=== PATIENT | male | born 1980 | race Caucasian/White ===

== ENCOUNTER 2017-11-12 07:26 | Day surgery (SDC) | payer OTHER, SELFPAY ==
--- NOTE | 2017-11-12 | LES_PTH ---
PATIENT: MC GOMEZ LOC: [facility] – [place] U#:[id number] AGE/SX: 37/M ROOM: RE11/12/[address]: Dr. Nicho Lane MD : 1980 BED: DIS: 11/12/2017 SPEC #: [id number] RECD: 11/12/17 10:41 STATUS: JASPER SERNA #: [id number] ERMELINDA: 11/12/17 00:[address]: Nicho Lane DEPT: SURGICAL PATHOLOGY RECD BY: Sherine Presley ENTERED: 11/12/17 11:40 SP TYPE: Lesion OTHR DR: Dr. Nicho Nunes MD Tissues: Uvula palatina Procedures: Surgery Specimen Level III HEADER OPERATION: Excision, lesion, Uvular PRE-OP DIAGNOSIS: Neoplasm of uncertain behavior of pharynx TISSUE SUBMITTED: Lesion of uvula MICROSCOPIC DIAGNOSIS Lesion of uvula, biopsy: Squamous papilloma. SJ:luigi 11/13/17 MICROSCOPIC DESCRIPTION Slides are reviewed. GROSS DESCRIPTION Received in fixative is one container labeled with the patient's name and designated lesion of uvula. The specimen consists of two irregular fragments of magana tissue that in aggregate measure 0.6 x 0.5 x .1 cm. The specimen is totally submitted in one cassette. / AM:luigi 11/12/17 TC:1 CPT: 39337
[2017-11-12 07:46] VITALS: BP 119/87; PULSE 80; RESP 16; TEMP 36.4; O2SAT 99; BMI 31.3
--- NOTE | 2017-11-12 08:33 | DCINST_ITS ---
You will use the following diet at home:: No restrictions Discharge Activity: Return to Normal Activity Call your doctor if your incision/area has: Sudden Increased Bleeding Allergies/Adverse Reactions: Allergies No Known Allergies Allergy (Verified 11/05/17 14:25) Primary Care Physician: Luis Alberto Nunes MD [Primary Care Provider] - Test Results: Test results from this visit will be discussed in further detail at your follow- up appointment, if applicable. Please Follow Up With: Luis Alberto Lane MD When: 3 weeks
--- NOTE | 2017-11-12 08:35 | PCM.OPRPT ---
Problem List (1) Mass of soft palate Status: Chronic Report of Operation Date of Procedure: 11/12/17 Pre-Operative Diagnosis: uvular mass Post-Operative Diagnosis: uvular mass Surgery/Procedure Performed:: excision uvular mass Type of Anesthesia:: General Description of Procedure: on the day of the procedure, after appropriate informed consent was obtained, the patient was brought to the operating room and placed in supine position on the operating table. he was placed under general endotracheal anesthesia by the anesthesiologist. the endotracheal tube was secured, the eyes were taped. the table was rotated 90 degrees toward the surgeon. a head drape was placed. a dano milagros mouthgag was inserted and suspended from the marcelino stand. the papular lesion just right of midline was grasped with a debakey forceps and excised with the bovie. hemostasis was achieved. the table was rotated 90 degrees toward the anesthesiologist and the patient was extubated uneventfully. the patient was transferred to the PACU in stable condition.
[2017-11-12 09:34] VITALS: BP 119/87; BP 135/96; PULSE 86; RESP 16; TEMP 36.4; O2SAT 98
[2017-11-12 09:45] VITALS: BP 119/87; BP 127/92; PULSE 76; RESP 16; O2SAT 96
[2017-11-12 10:00] VITALS: BP 119/87; BP 123/81; PULSE 74; RESP 16; TEMP 36.2; O2SAT 97
[2017-11-12 10:19] VITALS: BP 119/87
== END 2017-11-12 10:43 | disposition home or self-care (01) ==
LOC: SDC 07:27 → AC 07:28
PROVIDERS: Family Provider Family Medicine; PCP Family Medicine; Visit Provider Otolaryngology
PROC: (CPT 42104; principal; 2017-11-12 08:45)
DX: D10.39 Benign neoplasm of other parts of mouth (principal); F12.90 Cannabis use, unspecified, uncomplicated; Z87.891 Personal history of nicotine dependence
CPT/HCPCS: 42104; 88304; J7120; J2405

== ENCOUNTER → 2018-01-27 11:28 | Outpatient (CLI) | payer OTHER, SELFPAY ==
[2018-01-27 13:55] LABS: Absolute Lymphocyte Count 1.86 X10^3/ul (0.83-4.51); Absolute Neutrophil Count 2.8 X10^3/uL (2.0-7.7); Basophil# 0.01 X10^3/uL; Basophil% 0.2 % (0-1); Eosinophil# 0.09 X10^3/uL; Eosinophils% 1.6 % (0-5); Hematocrit 46.5 % (40-54); Hemoglobin 15.8 g/dl (13.0-16.5); Lymphocyte # 1.86 X10^3/ul (4.0); Lymphocyte % 33.9 % (19-41); Mean Corpuscular Hgb 30.6 pg (27.0-32.0); Mean Corpuscular Volume 90.1 fL (80-94); Monocyte# 0.67 X10^3/uL; Monocyte% 12.2 % (0-10); Neutrophil # 2.83 X10^3/uL (2.7-7.7); Neutrophil % 51.7 % (47-70); Platelet Count 234 K/mm3 (150-450); RBC Distribution Width CV 12.3 % (11.6-14.6); RBC Distribution Width SD 40.3 fl (35.1-43.9); Red Blood Count 5.16 M/mm3 (4.6-6.2); White Blood Count 5.5 K/mm3 (4.4-11.0)
[2018-01-27 13:56] LABS: POSITIVE COUNT NO; POSITIVE DIFFERENTIAL NO; POSITIVE MORPHOLOGY NO
[2018-01-27 14:15] LABS: BUN 16 mg/dL (7-18); Creatinine, Serum 0.85 mg/dL (0.70-1.30); Glucose 90 mg/dL (74-106)
[2018-01-27 14:16] LABS: AST(SGOT) 16 U/L (15-37); Alanine Aminotransfer ALT/SGPT 40 U/L (16-61); Albumin, Serum 3.8 g/dL (3.2-5.0); Alkaline Phosphatase 76 U/L (45-117); Anion Gap 8 (5-15); BUN/Creat Ratio 18.7 RATIO (10-20); Calcium,Total 8.6 mg/dL (8.5-10.1); Chloride 106 mmol/L (98-107); EST Glomerular Filtration Rate 106 mL/min (>60); Est Glom Filt Rate - Afr Amer 129 mL/min (>60); Globulin 3.8 g/dL (2.2-4.2); Potassium 4.1 mmol/L (3.5-5.1); Protein, Total 7.6 g/dL (6.4-8.2); Sodium Level 140 mmol/L (136-145); Thyroid Stim Hormone (TSH) 0.95 uIU/mL (0.358-3.74)
[2018-01-27 14:18] LABS: Vitamin D,25 Hydroxy 14.8 ng/mL (29.95-100.01)
== END ==
PROVIDERS: Family Provider Family Medicine; PCP Family Medicine; Visit Provider Family Medicine
DX: R53.83 Other fatigue (principal)
CPT/HCPCS: 36415; 80053; 82306; 84403; 84443; 85025

== ENCOUNTER → 2019-02-03 10:03 | Outpatient (CLI) | payer OTHER, SELFPAY ==
[2019-02-03 12:40] LABS: Erythrocyte Sedimentation Rate 3 mm/hr (0-15)
[2019-02-03 12:55] LABS: Vitamin D,25 Hydroxy 53.2 ng/mL (29.95-100.01)
[2019-02-03 13:08] LABS: BUN 14 mg/dL (7-18); Glucose 94 mg/dL (74-106)
[2019-02-03 13:09] LABS: AST(SGOT) 19 U/L (15-37); Alanine Aminotransfer ALT/SGPT 35 U/L (16-61); Albumin, Serum 3.9 g/dL (3.2-5.0); Alkaline Phosphatase 79 U/L (45-117); Anion Gap 5 (5-15); BUN/Creat Ratio 15.2 RATIO (10-20); Calcium,Total 8.9 mg/dL (8.5-10.1); Chloride 106 mmol/L (98-107); Creatinine, Serum 0.92 mg/dL (0.70-1.30); EST Glomerular Filtration Rate 97 mL/min (>60); Est Glom Filt Rate - Afr Amer 117 mL/min (>60); Protein, Total 7.9 g/dL (6.4-8.2); Sodium Level 139 mmol/L (136-145)
[2019-02-06 12:07] LABS: Testosterone, Free 13.43 ng/dL (5.00-21.00)
[2019-02-06 13:11] LABS: Testosterone, % Free 3.73 % (1.50-4.20); Testosterone, Total 360 ng/dL (264-916)
== END ==
PROVIDERS: Family Provider Family Medicine; PCP Family Medicine; Referring Provider Family Medicine; Visit Provider Family Medicine
DX: K58.9 Irritable bowel syndrome, unspecified (principal); K90.0 Celiac disease; R53.83 Other fatigue; R79.89 Other specified abnormal findings of blood chemistry
CPT/HCPCS: 36415; 80053; 82306; 84402; 84403; 85652

== ENCOUNTER → 2020-04-12 14:45 | Outpatient (CLI) | payer OTHER, SELFPAY ==
[2020-04-12 18:16] LABS: Absolute Lymphocyte Count 2.48 X10^3/uL (0.83-4.51); Absolute Neutrophil Count 4.5 X10^3/uL (2.0-7.7); Basophil# 0.03 X10^3/uL; Basophil% 0.4 % (0-1); Eosinophil# 0.06 X10^3/uL; Eosinophils% 0.8 % (0-5); Hematocrit 49.7 % (40-54); Hemoglobin 16.1 g/dL (13.0-16.5); Lymphocyte # 2.48 X10^3/ul (4.0); Mean Corp Hgb Conc 32.4 g/dL (32-36); Mean Corpuscular Hgb 29.8 pg (27.0-32.0); Mean Corpuscular Volume 91.9 fL (80-94); Mean Platelet Vol. 10.9 fl (6.2-12.0); Monocyte# 0.65 X10^3/uL; Monocyte% 8.4 % (0-10); NRBC Flagged by Analyzer 0 % (0-5); Platelet Count 276 K/mm3 (150-450); RBC Distribution Width SD 40.9 fl (35.1-43.9); Red Blood Count 5.41 M/mm3 (4.6-6.2); White Blood Count 7.8 K/mm3 (4.4-11.0)
[2020-04-12 18:32] LABS: Erythrocyte Sedimentation Rate 8 mm/hr (0-15)
[2020-04-12 18:41] LABS: ALB/GLOB Ratio 1.1 RATIO (0.9-2.4); AST(SGOT) 25 U/L (15-37); Alanine Aminotransfer ALT/SGPT 39 U/L (16-61); Albumin, Serum 4.2 g/dL (3.2-5.0); Alkaline Phosphatase 77 U/L (45-117); Anion Gap 7 (5-15); BUN 10 mg/dL (7-18); BUN/Creat Ratio 11.4 RATIO (10-20); Chloride 106 mmol/L (98-107); Creatinine, Serum 0.88 mg/dL (0.70-1.30); EST Glomerular Filtration Rate 101 mL/min (>60); Est Glom Filt Rate - Afr Amer 123 mL/min (>60); Ferritin 120 ng/mL (26-388); Globulin 3.9 g/dL (2.2-4.2); Glucose 83 mg/dL (74-106); Iron 99 ug/dL (65-175); Magnesium 2.2 mg/dL (1.6-2.6); Potassium 3.8 mmol/L (3.5-5.1); Protein, Total 8.1 g/dL (6.4-8.2); Sodium Level 138 mmol/L (136-145); Thyroid Stim Hormone (TSH) 1.24 uIU/mL (0.358-3.74)
[2020-04-12 18:54] LABS: Vitamin B12 400 pg/mL (211-911); Vitamin D,25 Hydroxy 39.1 ng/mL
== END ==
PROVIDERS: PCP Family Medicine; Visit Provider Family Medicine
DX: Z00.00 Encounter for general adult medical examination without abnormal findings (principal); R68.82 Decreased libido; R20.2 Paresthesia of skin; R79.89 Other specified abnormal findings of blood chemistry
CPT/HCPCS: 36415; 80053; 82306; 82607; 82728; 83540; 83735; 84403; 84443; 85025; 85652

== ENCOUNTER → 2020-12-12 16:45 | Outpatient (CLI) | payer OTHER, SELFPAY | PROVIDERS: PCP Family Medicine; Referring Provider Family Medicine; Visit Provider Family Medicine | DX: Z20.822 Contact with and (suspected) exposure to COVID-19 (principal) | CPT/HCPCS: 87635; U0005; U0003 ==

== ENCOUNTER 2021-08-03 10:38 | Outpatient (CLI) | payer OTHER, SELFPAY ==
[2021-08-03 12:19] LABS: Erythrocyte Sedimentation Rate 5 mm/hr (0-20)
[2021-08-03 12:50] LABS: Vitamin D,25 Hydroxy 39.7 ng/mL
[2021-08-03 12:52] LABS: Anion Gap 5 (5-15); BUN 18 mg/dL (7-18); BUN/Creat Ratio 24.2 RATIO (10-20); CRP < 2.90 mg/L (0.0-3.0); Calcium,Total 8.2 mg/dL (8.5-10.1); Chloride 110 mmol/L (98-107); Cholesterol 162 mg/dL (200); Creatinine, Serum 0.74 mg/dL (0.70-1.30); EST Glomerular Filtration Rate 123 mL/min (>60); Est Glom Filt Rate - Afr Amer 149 mL/min (>60); Glucose 95 mg/dL (74-106); High Density Lipoprotein 49 mg/dL; Potassium 3.9 mmol/L (3.5-5.1); Rheumatoid Factor < 10.0 IU/mL (<15); Sodium Level 140 mmol/L (136-145); Triglycerides 95 mg/dL; Very Low Density Lipoprotein 19 mg/dL (5-40)
[2021-08-04 16:53] LABS: ANTINUCLEAR ANTIBODIES DIRECT Negative (Negative)
== END 2021-08-03 23:59 | disposition home or self-care (01) ==
LOC: MFPLAB 10:39
PROVIDERS: PCP Family Medicine; Referring Provider Family Medicine; Visit Provider Family Medicine
DX: M25.50 Pain in unspecified joint (principal); R79.89 Other specified abnormal findings of blood chemistry; Z13.220 Encounter for screening for lipoid disorders; Z13.1 Encounter for screening for diabetes mellitus
CPT/HCPCS: 36415; 80048; 80061; 82306; 85652; 86038; 86140; 86431

== ENCOUNTER → 2022-04-24 | Outpatient (CLI) | payer OTHER, SELFPAY ==
--- NOTE | 2022-04-24 16:46 | RAD_ITS ---
STUDY: X-RAY - CERVICAL SPINE REASON FOR EXAM: Male, 41 years old. CERVICALGIA TECHNIQUE: 7 view(s) of the cervical spine were obtained. COMPARISON: None FINDINGS: Normal anterior atlantoaxial articulation. Normal odontoid process. Normal cervical lordosis. Normal vertebral bodies and endplates. Normal disc space heights. Normal visualized intervertebral neuroforamina. The flexion extension views show limited range of motion suggesting muscle spasm. The soft tissue structures are unremarkable. RAD/Cerv Spine Obl/Flex/Ext Comp IMPRESSION: Normal x-ray examination of the visualized cervical spine. Electronically Signed: Wilfrido Wood MD at 4:10 EST ,
== END | disposition home or self-care (01) ==
LOC: MTRAD 16:44
PROVIDERS: PCP Family Medicine; Referring Provider Family Medicine; Visit Provider Family Medicine
DX: M54.2 Cervicalgia (principal)
CPT/HCPCS: 72052

== ENCOUNTER → 2022-05-08 | Outpatient (CLI) | payer OTHER, SELFPAY ==
--- NOTE | 2022-05-08 15:28 | RAD_ITS ---
STUDY: X-RAY - RIGHT HAND REASON FOR EXAM: Male, 41 years old. HAND PAIN/ LACERATION TECHNIQUE: 3 view(s) of the hand. COMPARISON: None. FINDINGS: Normal radiocarpal articulation. Normal distal radioulnar joint. Normal visualized carpal bones. Normal carpal articulations Normal carpometacarpal articulation of the thumb. Normal second through fifth carpometacarpal joints. Normal metacarpi. Normal metacarpophalangeal joint of the thumb. Normal interphalangeal joint of the thumb. Normal proximal and distal phalanges of the thumb. Normal metacarpophalangeal joints of the second through fifth fingers. Normal proximal and distal interphalangeal joints of the second through fifth fingers. Normal phalanges of the second through fifth fingers. No radiopaque foreign body is seen. RAD/Hand Min 3 Views IMPRESSION: Normal x-ray examination of the hand. Electronically Signed: Franklyn Pacheco MD at 15:44 EST ,
== END | disposition home or self-care (01) ==
PROVIDERS: PCP Family Medicine; Referring Provider Family Medicine; Visit Provider Family Medicine
DX: S61.411A Laceration without foreign body of right hand, initial encounter (principal); M79.641 Pain in right hand
CPT/HCPCS: 73130

== ENCOUNTER → 2022-06-25 | Outpatient (CLI) | payer OTHER, SELFPAY ==
--- NOTE | 2022-06-25 15:18 | NEURO_ITS ---
NCS and/or EMG Patient Report Ordering Doctor: Luis Alberto Nunes DATE OF SERVICE: 06/25/22 Indication: Two years of intermittent pain and numbness in the right fingers (predominantly digit 3 and 4). Previously a steroid injection in the wrist provided temporary relieve. Evaluate for entrapment neuropathy. Findings: Nerve conduction studies were performed in the right upper extremity. The right median motor study recording the abductor pollicis brevis showed a normal amplitude, prolonged distal latency and normal conduction velocity. The right ulnar motor study recording the abductor digiti minimi showed a normal amplitude, normal distal latency and normal conduction velocity. No conduction block or focal slowing was present across the elbow. The right median sensory response recording digit two showed a normal amplitude, latency and conduction velocity. The right ulnar sensory response recording di git five showed a normal amplitude, latency and conduction velocity. The right radial sensory response recording over the extensor snuff box showed a normal amplitude, latency and conduction velocity. Right median-ulnar lumbrical / interosseous motor latencies showed a prolonged median latency compared to the ulnar. Needle EMG of the right upper extremity muscles was performed. No denervation was seen in any muscle. All motor unit morphology, activation and recruitment patterns were normal. Impression: This is an abnormal study. 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 The pathophysiology is demyelinating with no evidence of secondary axonal loss. These findings are compatible with the clinical diagnosis of carpal tunnel syndrome. There was no evidence of a superimposed radiculopathy in the right upper extremity. Nicho Berry D.O. Multi Select Codes Neurology Neurology Interp Codes: 12008-68 Musc test done w/n test comp (interp) and 59881-41 Nrv cndj test 7-8 studies (interp)
== END | disposition home or self-care (01) ==
PROVIDERS: PCP Family Medicine; Visit Provider Family Medicine
DX: M79.601 Pain in right arm (principal)
CPT/HCPCS: 95886; 95910

== ENCOUNTER → 2022-08-06 | Outpatient (CLI) | payer OTHER, SELFPAY ==
[2022-08-06 12:07] LABS: Erythrocyte Sedimentation Rate 3 mm/hr (0-20)
[2022-08-06 12:13] LABS: Hematocrit 42.9 % (40-54); Hemoglobin 14.7 g/dL (13.0-16.5); Mean Corp Hgb Conc 34.3 g/dL (32-36); Mean Corpuscular Hgb 30.9 pg (27.0-32.0); Mean Corpuscular Volume 90.1 fL (80-94); Mean Platelet Vol. 10.4 fl (6.2-12.0); Platelet Count 230 K/mm3 (150-450); RBC Distribution Width CV 11.8 % (11.6-14.6); RBC Distribution Width SD 38.6 fl (35.1-43.9); Red Blood Count 4.76 M/mm3 (4.6-6.2); White Blood Count 5.3 K/mm3 (4.4-11.0)
[2022-08-06 12:20] LABS: ALB/GLOB Ratio 1.2 RATIO (0.9-2.4); AST(SGOT) 14 U/L (15-37); Alanine Aminotransfer ALT/SGPT 26 U/L (16-61); Albumin, Serum 3.9 g/dL (3.2-5.0); Alkaline Phosphatase 56 U/L (45-117); Anion Gap 5 (5-15); BUN 16 mg/dL (7-18); BUN/Creat Ratio 21.5 RATIO (10-20); Calcium,Total 8.8 mg/dL (8.5-10.1); Chloride 110 mmol/L (98-107); Cholesterol 143 mg/dL (200); Creatinine, Serum 0.74 mg/dL (0.70-1.30); EST Glomerular Filtration Rate 122 mL/min (>60); Est Glom Filt Rate - Afr Amer 147 mL/min (>60); Ferritin 139 ng/mL (26-388); Globulin 3.3 g/dL (2.2-4.2); Glucose 91 mg/dL (74-106); High Density Lipoprotein 48 mg/dL; Iron 132 ug/dL (65-175); Potassium 3.5 mmol/L (3.5-5.1); Protein, Total 7.2 g/dL (6.4-8.2); Sodium Level 139 mmol/L (136-145); Triglycerides 92 mg/dL; Very Low Density Lipoprotein 18 mg/dL (5-40)
[2022-08-06 12:40] LABS: Vitamin D,25 Hydroxy 31.6 ng/mL
[2022-08-06 15:21] LABS: Color, Urine Yellow (Yellow); Glucose, Dipstick Normal (Normal); Ketone-Dipstick Negative (Negative); Leukocyte Esterase-Dipstick Negative /ul (Negative); Nitrite-Dipstick Negative (Negative); Occult Blood-Urine 50 /ul (Negative); Protein-Dipstick Negative (Negative); Specific Gravity, Urine 1.025 (1.002-1.030); Urine Bilirubin Dipstick Negative (Negative); Urine Clarity Sl. Cloudy (Clear); Urine Urobilinogen Normal (Normal)
== END | disposition home or self-care (01) ==
LOC: MFPLAB 10:00
PROVIDERS: PCP Family Medicine; Visit Provider Family Medicine
DX: Z00.00 Encounter for general adult medical examination without abnormal findings (principal); K58.9 Irritable bowel syndrome, unspecified; N52.9 Male erectile dysfunction, unspecified; Z13.220 Encounter for screening for lipoid disorders; K90.0 Celiac disease
CPT/HCPCS: 36415; 80053; 80061; 81002; 82306; 82728; 83540; 84403; 85027; 85652

== ENCOUNTER → 2022-10-16 | Outpatient (CLI) | payer OTHER, SELFPAY | END | disposition home or self-care (01) | LOC: RAD 14:21 | PROVIDERS: PCP Family Medicine; Referring Provider Family Medicine; Visit Provider Family Medicine | DX: Z00.00 Encounter for general adult medical examination without abnormal findings (principal) ==

== ENCOUNTER → 2023-01-25 | Outpatient (CLI) | payer OTHER, SELFPAY ==
--- NOTE | 2023-01-25 08:14 | MRI_ITS ---
EXAM: MR CERVICAL SPINE WITHOUT INTRAVENOUS CONTRAST CLINICAL INDICATION: c/o neck pain into R shoulder, no specific injury TECHNIQUE: Multiplanar and multisequence MR images of the cervical spine without intravenous contrast were performed. Magnetic field strength 1.5 T. COMPARISON: No relevant prior studies available. FINDINGS: VERTEBRAE: Unremarkable. Normal vertebral bodies and posterior elements. Normal alignment. Normal craniocervical junction and cervicothoracic junction. No spondylolisthesis. There is preservation of the normal cervical lordosis. SPINAL CORD: Unremarkable in signal and morphology. SOFT TISSUES: Unremarkable. No prevertebral soft tissue swelling. LYMPH NODES: Unremarkable. There is no cervical adenopathy. DISCS/SPINAL CANAL/NEURAL FORAMINA: C2-C3: Unremarkable. Normal disc height and morphology. Normal spinal canal. Normal neuroforamina. C3-C4: Unremarkable. Normal disc height and morphology. Normal spinal canal. Normal neuroforamina. C4-C5: Moderate right neural foraminal narrowing due to uncovertebral joint osteophytes. Normal spinal canal. C5-C6: Unremarkable. Normal disc height and morphology. Normal spinal canal. Normal neuroforamina. C6-C7: Unremarkable. Normal disc height and morphology. Normal spinal canal. Normal neuroforamina. C7-T1: Unremarkable. Normal disc height and morphology. Normal spinal canal. Normal neuroforamina. MRI/Spine Cervical (Routine) IMPRESSION: Moderate right neural foraminal narrowing at C4-C5 due to uncovertebral joint osteophytes. Electronically Signed: Jarocho Fay MD at 0:28 EDT ,
== END | disposition home or self-care (01) ==
PROVIDERS: PCP Family Medicine; Referring Provider Orthopaedic Surgery; Visit Provider Orthopaedic Surgery
DX: M50.20 Other cervical disc displacement, unspecified cervical region (principal)
CPT/HCPCS: 72141

== ENCOUNTER → 2023-03-19 | Outpatient (CLI) | payer OTHER, SELFPAY ==
[2023-03-19 10:32] LABS: PSA,Total - Annual Screen 0.71 ng/mL (0.00-4.00)
== END | disposition home or self-care (01) ==
LOC: LAB 09:38
PROVIDERS: PCP Family Medicine; Referring Provider Family Medicine; Visit Provider Family Medicine
DX: N40.0 Benign prostatic hyperplasia without lower urinary tract symptoms (principal)
CPT/HCPCS: 36415; 84153; G0103

== ENCOUNTER → 2023-11-27 | Outpatient (CLI) | payer OTHER, SELFPAY ==
--- NOTE | 2023-11-27 15:25 | RAD_ITS ---
INDICATION: pain 1st MTP EXAMINATION/TECHNIQUE: X-RAY - RIGHT FOOT XR Toes Min 2 Views 4 VIEWS COMPARISON: Prior study dated: 02/09/2014 FINDINGS: SOFT TISSUES: No soft tissue swelling or gas. No radiopaque foreign body. BONES/JOINTS: No acute fracture or subluxation.. Normal alignment. Mild joint space narrowing of the first metatarsophalangeal joint with small osteophytes.. No sclerotic or destructive changes observed. RAD/Toe(s) Min 2 Views IMPRESSION: No fracture or malalignment. Mild degenerative change at the first metatarsophalangeal joint. Electronically Signed: Rajendra Peters MD at 17:00 EDT ,
== END | disposition home or self-care (01) ==
LOC: MTRAD 15:23
PROVIDERS: PCP Family Medicine; Referring Provider Family Medicine; Visit Provider Family Medicine
DX: M19.90 Unspecified osteoarthritis, unspecified site (principal); M79.674 Pain in right toe(s)
CPT/HCPCS: 73660

== ENCOUNTER → 2024-08-11 | Outpatient (CLI) | payer OTHER, SELFPAY ==
[2024-08-11 14:05] LABS: PSA,Total - Annual Screen 0.63 ng/mL (0.02-4.00)
== END | disposition home or self-care (01) ==
PROVIDERS: PCP Family Medicine; Referring Provider Nurse Practitioner; Visit Provider Nurse Practitioner
DX: Z12.5 Encounter for screening for malignant neoplasm of prostate (principal)
CPT/HCPCS: 36415; 84153; G0103